=== PATIENT | male | born 1960 | race Caucasian/White ===

== ENCOUNTER 2017-03-14 16:18 | Emergency (ER) | payer MEDICARE, MEDICAID ==
[~2017-03-14] VITALS: Ht 182.9 cm; Wt 154.6 kg
[~2017-03-14 16:18] MED LIST: ALBU8.5H2 INHALATION; ALPR0.5T8 PO; AMT25T PO; DOCU-41 PO; SERT50TA9 PO
[2017-03-14 16:29] VITALS: BP 155/90; PULSE 68; RESP 18; O2SAT 99
--- NOTE | 2017-03-14 18:14 | ED.REPORT ---
HPI-General Illness Date of Service March 14, 2017 ED Provider: Rm De Guzman MD Pt is a 56 y/o male w/ a hx of previous colon CA in remission s/p resection presenting to the ED c/o intermittent mild headaches onset 2 weeks ago. The patient saw his oncologist 2 weeks ago for regular checkup at which time he reports blood work was normal but he was hypertensive with BP of 218/105. His oncologist "apparently didn't seem to be concerned regarding this". He is not taking any BP medication. He describes his headaches as a dull mild pain behind the left eye. Pt denies CP, SOB, fever, chills, numbness, tingling, weakness, vision changes. Nursing Notes Stated Complaint: POSS HIGH BLOOD PRESSURE Chief Complaint: Headache Nursing Notes Reviewed: Yes Allergies: Coded Allergies: No Known Allergies (Verified Allergy, Unknown, 05/13/16) Scheduled Amitriptyline (Amitriptyline) 25 Mg Tab 12.5 MG PO HS Docusate Sodium (Colace) 100 Mg Capsule 100 MG PO TID Lisinopril/HCTZ 10-12.5 mg (Zestoretic 10-12.5 mg) 1 Each Tablet 1 EACH PO DAILY Sertraline HCl (Sertraline) 50 Mg Tablet 100 MG PO DAILY Scheduled PRN Albuterol HFA (Proair HFA) 8.5 Gm Hfa.aer.ad 2 PUFFS INHALATION Q4H PRN PRN For Shortness of Breath Alprazolam (Alprazolam) 0.5 Mg Tablet 0.5 MG PO BID PRN PRN For Anxiety General Time Seen by MD: 18:05 Chief Complaint Headache Hx Obtained From: Patient Arrived By: Walk-in Sudden in Onset?: No Onset Occurred: More than a week ago... 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, status post surgery and chemotherapy and in remission since 2010 Morbid obesity Sleep apnea Hypertension Anxiety Past Surgical History Status post left colectomy in October 2010, and had resection of 2 synchronous sigmoid adenocarcinomas when which are grossly perforated to the bowel wall extending to the radial margin-underwent follow-up chemotherapy Reports: Appendectomy Smoking History Current Some Day Smoker Social History Alcohol Use: Denies alcohol use Drug Use: THC Ambulatory Status Independent Review of Systems Full Review of Systems Constitutional: Denies: Chills, Fever Respiratory: Denies: Non-productive cough, Shortness of breath Cardiovascular: Denies: Chest pain GI: Denies: Abdominal pain, Nausea, Vomiting Neurologic: Reports: Headache, Vision change Complete sys rev & neg: except as marked. Physical Exam Vital Signs Vital Signs Date Time Temp Pulse Resp B/P Pulse Ox O2 Delivery O2 Flow Rate FiO2 03/14/17 21:16 36.4 67 20 165/89 98 Room Air 03/14/17 18:52 36.9 20 182/74 98 Room Air 03/14/17 16:29 36.4 68 18 155/90 99 Initial VS: Reviewed, Vital signs abnormal Head / Eyes: Atraumatic, Normocephalic, PERRL ENT: Mucous membranes moist, Conjunctiva normal, No scleral icterus Respiratory: Breath sounds normal, Clear to auscultation, No respiratory distress Cardiovascular: Regular rate & rhythm, Heart sounds normal, Intact distal pulses Extremities: Vascular intact, Neuro intact, No swelling, No tenderness Skin: Warm, Dry, No cyanosis Psychiatric: Mood/affect normal, Behavior normal, Normal thought content General/Constitutional: Awake, Alert, No acute distress, Cooperative, Not toxic appearing Neck: Atraumatic, Supple, No meningismus, Full range of motion Meningeal Signs / ROM: Negative: Brudzinski's positive, Kernig's positive Abdomen: Atraumatic, Soft, Non-tender Colostomy bag in LLQ Well healed midline surgical scar Neurologic: Oriented X3, Speech NL, No motor deficits, No sensory deficits, Cerebellar NL, Memory NL No pronator drift Interpretation & Diagnostics Lab Results Interpretation Result Diagram: 03/14/17200803/14/172008 Test 03/14/17 20:09 White Blood Count 7.0th/mm3 (3.8-10.1) Red Blood Count 4.46mil/mm3 (4.40-5.80) Hemoglobin 14.0g/dL (13.8-17.2) Hematocrit 40.3% (41.0-50.0) Mean Corpuscular Volume 90.4fL (81-100) Mean Corpuscular Hemoglobin 31.4pg (27.0-35.0) Mean Corpuscular Hemoglobin Concent 34.7% (32.0-37.0) Red Cell Distribution Width 13.8% (12.3-15.4) Platelet Count 158bil/L (150-400) Neutrophils (%) (Auto) 59.1% (40-74) Lymphocytes (%) (Auto) 26.5% (14-46) Monocytes (%) (Auto) 11.1% (4-12) Eosinophils (%) (Auto) 2.4% (0-5) Basophils (%) (Auto) 0.6% (0-3) Sodium Level 138mEq/L (134-144) Potassium Level 3.8mEq/L (3.5-5.2) Chloride Level 100mEq/L (97-108) Carbon Dioxide Level 25mmol/L (18-29) Blood Urea Nitrogen 13mg/dL (6-24) Creatinine 0.58mg/dL (0.76-1.27) Estimat Glomerular Filtration Rate 155mL/min (>59) Glucose Level 92mg/dL (60-99) Calcium Level 8.8mg/dL (8.5-10.1) Total Bilirubin 0.4mg/dL (0.0-1.2) Aspartate Amino Transf (AST/SGOT) 21U/L (0-50) Alanine Aminotransferase (ALT/SGPT) 23U/L (0-44) Alkaline Phosphatase 70U/L (25-150) Total Protein 7.5g/dL (6.4-8.4) Albumin 3.9g/dL (3.4-5.0) Hold Arellano Top Tube Received (Received) ECG Interpretation Time: 19:35 Interpreted by: ED physician Normal ECG Interpretation: Normal ECG w/ rate of... (75), Normal rate, Normal sinus rhythm, No acute ischemic changes, Normal QRS, Normal axis, Normal intervals, Adequate tracing Re-Eval/Medical Decision Med Decision/Clinical Course Pt is a 56 y/o male w/ a hx of previous colon CA in remission s/p resection presenting to the ED c/o intermittent mild headaches onset 2 weeks ago. The patient saw his oncologist 2 weeks ago for regular checkup at which time he reports blood work was normal but he was hypertensive with BP of 218/105. His oncologist "apparently didn't seem to be concerned regarding this". He is not taking any BP medication. He describes his headaches as a dull mild pain behind the left eye. Pt denies CP, SOB, fever, chills, numbness, tingling, weakness, vision changes. Meds given: 1 mg Ativan, Tylenol Labs notable as below: CBC: unremarkable CMP: unremarkable Here in the emergency department the patient's blood pressure improved into the 160s systolic. He remained afebrile, with stable vital signs and in no apparent distress. Laboratory studies and EKG as above demonstrated no evidence of end organ damage related to his hypertension. I called the patient' s primary care physician and discussed his presentation today. We have opted to start him on lisinopril/hydrochlorothiazide and the first dose was administered here in the emergency room. I feel that he can be managed on an outpatient basis. His primary care physician will make sure that he gets seen for close follow-up. At this time I feel that he is appropriate for discharge home. Prior to discharge follow-up and return precautions were reviewed in detail with the patient who verbalized understanding and agreement with the plan. The patient was discharged in stable condition. Time of Eval: 21:21 Patient Status: Condition resolved, Complete relief Re-Evaluation/Progress Note: Pt rechecked. Informed pt of plan for treatment. Pt understands and agrees with plan for treatment. F/U instructions and RTER warnings given. All questions addressed. Consultation : Referral / Consult Name: Naresh Espinosa DO Consulted With: Primary care physician Call Returned at: 19:35 Business Banking Representative: Agrees with eval, Agrees with plan Note: Discussed case with on-call PCP for Dr. Fernández. Recommends start low dose Lisinopril/HCTZ. They will see him in follow-up. Counseled Regarding: Diagnosis, Lab results, Need for follow-up, When/why to return to ED Discharge & Departure Primary Impression: Headache Headache type: unspecified Headache chronicity pattern: acute headache Intractability: not intractable Qualified Code: R51 - Headache Additional Impressions: Hypertension Hypertension type: unspecified secondary hypertension Qualified Code: I15.9 - Secondary hypertension, unspecified Hypertensive urgency Disposition: Home Discharge Condition All VS Reviewed: Yes Condition: Stable Patient Instructions: Acute Headache (GEN), Chronic Hypertension (ED) Additional Instructions: Thank you for seeking care at the emergency room. Our primary goal today in the ED was to evaluate you for any life-threatening conditions. Your evaluation was reassuring. Your symptoms may be caused by your blood pressure. You will be discharged with a prescription for Lisinopril/HCTZ for your blood pressure. Please take it as directed. You should follow-up with your primary doctor in the next week. Call to schedule an appointment. I called them today and they will see you sooner than your scheduled appointment. You should return to the ED immediately if you develop fevers, vomiting, shortness of breath, chest pain, lightheadedness, weakness. continued blurry vision, one-sided numbness or weakness, or any other concerning signs or symptoms. Thank you for letting us partake in your care today. Referrals: Cesar Fernández DO (PCP) Torin Attestation Portions of this note were transcribed by Marcellus Monteiro. I, Dr. De Guzman personally performed the history, physical exam and medical decision-making; I reviewed and confirmed the accuracy of the information in the transcribed note. Signed by Torin Huitron, 03/14/17 - copies to: Cesar Fernández Beck O MD March 14, 2017 18:14 MARCELLUS MONTEIRO March 14, 2017 18:17
[2017-03-14 18:52] VITALS: BP 182/74; RESP 20; O2SAT 98
[2017-03-14] MEDS ORDERED: LORazepam 1 mg Tablet PO PRN (19:20)
[2017-03-14] MEDS ORDERED: LISI-606 PO (19:38)
[2017-03-14 20:15] LABS: BASOPHILS % (AUTO) 0.6 % (0-3); EOSINOPHILS % (AUTO) 2.4 % (0-5); MONOCYTES % (AUTO) 11.1 % (4-12); Mean Corpuscular Hemoglobin 31.4 pg (27.0-35.0); Mean Corpuscular Volume 90.4 fL (81-100); NEUTROPHILS % (AUTO) 59.1 % (40-74); Platelet Count 158 bil/L (150-400)
[2017-03-14 21:16] VITALS: BP 165/89; PULSE 67; RESP 20; O2SAT 98
== END 2017-03-14 21:35 | disposition home or self-care (01) ==
LOC: SED 16:18
DX: I15.9 Secondary hypertension, unspecified (principal); I16.0 Hypertensive urgency; F17.200 Nicotine dependence, unspecified, uncomplicated